=== PATIENT | female | born 2000 | race Caucasian/White ===

== ENCOUNTER 2025-01-14 11:32 | Emergency (ER) | payer BC | END 2025-01-14 17:12 | disposition home or self-care (01) | LOC: JP.ED 11:32 | DX: R45.851 Suicidal ideations (principal); Z79.899 Other long term (current) drug therapy; Z79.1 Long term (current) use of non-steroidal anti-inflammatories (NSAID); Z91.048 Other nonmedicinal substance allergy status; Z88.8 Allergy status to other drugs, medicaments and biological substances | CPT/HCPCS: 99284 ==

== ENCOUNTER 2025-01-20 16:09 | Emergency (ER) | payer BC ==
[2025-01-20] MEDS ORDERED: Sodium Chloride 0.9% 10 ML Syringe FLUSH PRN (16:37)
[2025-01-20] MEDS: Sodium Chloride 0.9% 1,000 ML IV SCH (16:56)
[2025-01-20 17:16] LABS: ANION GAP 9.8 mmol/L (5.0-14.0); CALCIUM 9.6 mg/dL (8.5-10.1); CREATININE 1.2 mg/dL (0.6-1.0); EST CRCL DRUG DOSING (CG) 52.37 mL/min; PHOSPHORUS 3.8 mg/dL (2.5-4.9); TROPONIN I HIGH SENSITIVITY 6.4 pg/mL (<=60.3)
[2025-01-20 17:20] LABS: BASOPHILS ABSOLUTE AUTO 0.06 K/uL (0.00-0.10); BASOPHILS PERCENT AUTO 0.5 % (0.1-1.3); EOSINOPHILS ABSOLUTE AUTO 0.06 K/uL (0.00-0.40); EOSINOPHILS PERCENT AUTO 0.5 % (0.0-5.4); HEMATOCRIT 41.3 % (34.3-46.0); HEMOGLOBIN 14.4 g/dL (11.2-15.5); IMMATURE GRAN ABSOLUTE AUTO 0.06 K/uL (0.00-0.23); IMMATURE GRAN PERCENT AUTO 0.5 % (0.0-0.7); LYMPHOCYTES ABSOLUTE AUTO 3.21 K/uL (0.8-3.3); LYMPHOCYTES PERCENT AUTO 26.4 % (11.4-47.7); MEAN CORPUSCULAR HGB CONC 34.9 g/dL (31.6-35.5); MEAN CORPUSCULAR VOLUME 77.5 fL (81.4-99.0); MONOCYTES ABSOLUTE AUTO 0.78 K/uL (0.20-0.90); MONOCYTES PERCENT AUTO 6.4 % (3.3-12.6); NEUTROPHILS ABSOLUTE AUTO 7.97 K/uL (1.0-7.6); NEUTROPHILS PERCENT AUTO 65.7 % (40.0-78.1); PLATELET COUNT,PLT 363 K/uL (130-375); RED BLOOD CELL COUNT 5.33 M/uL (3.77-5.24); WHITE BLOOD CELL COUNT,WBC 12.1 K/uL (3.2-11.0)
[2025-01-20] MEDS: Ketorolac 30 MG/ML SDV IVPUSH ONE (17:37)
[2025-01-20] MEDS: Acetaminophen 500 MG Tab PO ONE (17:43)
== END 2025-01-20 18:25 | disposition home or self-care (01) ==
LOC: JP.ED 16:09
DX: R00.0 Tachycardia, unspecified (principal); J45.909 Unspecified asthma, uncomplicated; Z86.16 Personal history of COVID-19; Z79.899 Other long term (current) drug therapy; Z87.891 Personal history of nicotine dependence; Z91.048 Other nonmedicinal substance allergy status; Z91.018 Allergy to other foods
CPT/HCPCS: 36415; 71045; 80048; 83735; 84100; 84484; 85025; 93005; 96360; 99285; A9270; J7030

== ENCOUNTER 2025-01-22 07:18 | Day surgery (SDC) | payer BC ==
[2025-01-22] MEDS ORDERED: Propofol 200 MG/20 ML SDV ONE ×3 (07:25→08:42)
[2025-01-22] MEDS ORDERED: fentaNYL 100 MCG/2 ML SDV ONE ×2 (07:25→07:34)
[2025-01-22] MEDS ORDERED: Midazolam 1 MG/ML 2 ML SDV ONE ×2 (07:25→07:34)
[2025-01-22] MEDS: Lactated Ringers 1,000 ML IV SCH (08:15)
== END 2025-01-22 10:00 | disposition home or self-care (01) ==
LOC: JP.SDS 07:18
PROVIDERS: ATTEND Surgery
DX: K52.9 Noninfective gastroenteritis and colitis, unspecified (principal); K92.2 Gastrointestinal hemorrhage, unspecified
CPT/HCPCS: 00813; 43239; 45380; 81025; J2250; J2704; J3010; J7120